=== PATIENT | female | born 1950 | race Caucasian/White ===

== ENCOUNTER 2018-11-14 15:08 | Emergency (ER) | payer OTHER ==
[~2018-11-14] VITALS: Ht 154.9 cm; Wt 99.8 kg
[2018-11-14 15:21] VITALS: Ht 154.9 cm; Wt 99.8 kg
[2018-11-14] MEDS ORDERED: TRAZODONE HCL1 POW (17:03)
[2018-11-14] MEDS ORDERED: HYDROCHLOROTH12.5 M2 (17:03)
[2018-11-14] MEDS ORDERED: TOPROL XL25 MG (17:03)
[2018-11-14 17:17] LABS: BASOPHIL % 0.5 % (0-2); PLATELET COUNT 344 x10^3mcL (130-400)
[2018-11-14 17:19] LABS: CALCIUM 9.2 mg/dL (8.5-10.1); CARBON DIOXIDE 33.8 mmol/L (21-32); CHLORIDE SERUM 103 mmol/L (98-107); CREATININE SERUM 0.7 mg/dL (0.6-1.0); GFR1 > 60 mL/min; GLUCOSE SERUM 94 mg/dL (74-106); POTASSIUM SERUM 3.7 mmol/L (3.5-5.1); RED CELL DISTRIBUTION WIDTH 14.6 % (11.5-14.5); SODIUM SERUM 139 mmol/L (136-145)
[2018-11-14 17:26] LABS: ALKALINE PHOSPHATASE 73 U/L (46-116); ALT/SGPT 20 U/L (14-59); AST/SGOT 13 U/L (15-37); BILIRUBIN TOTAL 0.3 mg/dL (0.20-1.00)
[2018-11-14 17:27] LABS: ALBUMIN 3.3 g/dL (3.4-5.0)
[2018-11-14 22:16] VITALS: BP 117/46
== END 2018-11-14 23:00 | disposition short-term general hospital (02) ==
LOC: ED 15:08
PROVIDERS: Emergency Medicine
DX: R07.89 Other chest pain (principal); E66.9 Obesity, unspecified; I10 Essential (primary) hypertension; E78.00 Pure hypercholesterolemia, unspecified; R11.0 Nausea; R51 Headache; R61 Generalized hyperhidrosis; Z68.41 Body mass index [BMI] 40.0-44.9, adult; Z88.8 Allergy status to other drugs, medicaments and biological substances
CPT/HCPCS: 36415; Q0092